=== PATIENT | male | born 1980 | race African-American/Black ===

== ENCOUNTER 2018-03-09 05:38 | Emergency (ER) | payer SELFPAY ==
[2018-03-09 06:22] VITALS: TEMP 98.9; BMI 27.1
[2018-03-09] MEDS ORDERED: AZITHROMYCIN 1 GM PACKET PO ONE (08:02)
--- NOTE | 2018-03-09 08:17 | PDOC ---
History of Present Illness - General History Source: Patient Exam Limitations: No Limitations - History of Present Illness Initial Comments: 03/09/18 08:17 The patient is a 37 year old male with no significant past medical history who presents to the ED with complaints of testicular pain for the past two days. The patient states the pain is sharp and radiates to his lower back and to his superpubic region. He reports having associated dysuria and frequency. He reports the pain is similar to when he was diagnosed with chlamydia three months ago for which he was treated with antibiotics. He reports he is sexually active with female partners and last time he engaged in sexual activity was two weeks ago with his ex, the same person he had relations with when he contracted chlamydia. He denies any trauma to the area. Denies any saddle anesthesia. Denies any associated fevers, chills, or body aches. <Doreen Ornelas - Last Filed: 03/09/18 10:27> <Torsten Conner - Last Filed: 03/09/18 11:12> - General Chief Complaint: Back Pain Stated Complaint: LOW BACK PAIN,ABD PAIN Time Seen by Provider: 03/09/18 07:22 Past History <Doreen Ornelas - Last Filed: 03/09/18 10:27> - Past Medical History COPD: No - Immunization History Immunization Up to Date: Yes - Suicide/Smoking/Psychosocial Hx Smoking History: Never smoked Have you smoked in the past 12 months: No Information on smoking cessation initiated: No Hx Alcohol Use: No Drug/Substance Use Hx: No Substance Use Type: None <Torsten Conner - Last Filed: 03/09/18 11:12> - Past Medical History Allergies/Adverse Reactions: Allergies Allergy/AdvReac Type Severity Reaction Status Date / Time No Known Allergies Allergy Verified 03/09/18 06:10 Home Medications: Ambulatory Orders Doxycycline Monohydrate [Monodox] 100 mg PO Q12H #14 capsule 03/09/18 Review of Systems - Review of Systems Comments:: 03/09/18 08:17 <Doreen Ornelas - Last Filed: 03/09/18 10:27> - Review of Systems Constitutional: No: Chills, Fever, Night Sweats, Unexplained wgt Loss Respiratory: No: Cough, Shortness of Breath Cardiac (ROS): No: Chest Pain ABD/GI: No: Constipated, Diarrhea, Vomiting : Yes: See HPI Musculoskeletal: No: Back Pain, Muscle Pain All Other Systems: Reviewed and Negative <Torsten Conner - Last Filed: 03/09/18 11:12> *Physical Exam - Vital Signs Last Vital Signs Temp Pulse Resp BP Pulse Ox 98.9 F 82 20 148/66 99 03/09/18 05:40 03/09/18 05:40 03/09/18 05:40 03/09/18 05:40 03/09/18 05:40 - Physical Exam Comments: 03/09/18 08:28 GENERAL: The patient is awake, alert, and fully oriented, in no acute distress. HEAD: Normal with no signs of trauma. EYES: Pupils equal, round and reactive to light, extraocular movements intact, sclera anicteric, conjunctiva clear with no pallor. ENT: Ears normal, nares patent, oropharynx clear without exudates. Moist mucous membranes. NECK: Normal range of motion, supple without lymphadenopathy, JVD, or masses. LUNGS: Breath sounds equal, clear to auscultation bilaterally. No wheeze/ crackles. HEART: Regular rate and rhythm, normal S1 and S2 without murmur or rub. ABDOMEN: Soft/nontender/nondistended. BS wnl. No guarding or rebound. No palpable masses. No hepatosplenomegaly. GENITOURINARY: Normal circumcised penis without urethral discharge. No swelling or cellulitis. No tenderness to testes or epididymus bilaterally. No inguinal lymphadenopathy EXTREMITIES: Normal range of motion, no edema. No clubbing or cyanosis. No cords, erythema, or tenderness. NEUROLOGICAL: Cranial nerves II through XII grossly intact. Normal speech, normal gait. PSYCH: Normal mood, normal affect. SKIN: Warm, Dry, normal turgor, no rashes or lesions noted. <Doreen Ornelas - Last Filed: 03/09/18 10:27> - Vital Signs Last Vital Signs Temp Pulse Resp BP Pulse Ox 98.9 F 82 20 148/66 99 03/09/18 05:40 03/09/18 05:40 03/09/18 05:40 03/09/18 05:40 03/09/18 05:40 <Torsten Conner - Last Filed: 03/09/18 11:12> ED Treatment Course - RADIOLOGY Radiograph Interpretation: 03/09/18 10:27 Scrotal ultrasound as reviewed by Dr. Kirby reports small bilateral hydroceles , large right sided varicocele and small left sided varicocele. No evidence of torsion. <Doreen Ornelas - Last Filed: 03/09/18 10:27> - RADIOLOGY Radiology Studies Ordered: Category Date Time Status SCROTUM AND CONTENTS US [US] Stat Ultrasound 03/09/18 08:04 Ordered <Torsten Conner - Last Filed: 03/09/18 11:12> Medical Decision Making - Medical Decision Making 03/09/18 08:13 A portion of this note was documented by scribe services under my direction. I have reviewed the details of the note, within reason, and agree with the documentation with the following case summary and management plan written by me. Healthy 37-year-old male presents with pelvic/low back discomfort radiating to his scrotum and 2 days of urinary frequency and dysuria. Symptoms identical to prior diagnosis of chlamydia about 2 months ago, which was treated with symptom improvement. Patient had intercourse with same partner about 3 weeks ago, has developed the same symptoms over the last 2 days. Denies any fevers or chills, denies any injury. vss, afebrile abd exam benign, no guarding/rebound no cvat normal exam: circumsized, no discharge. no scrotal erythema or swelling, no testicular/epidydimal ttp or enlargement, no palpable hernia, no palpable enlarged inguinal LAD. 37-year-old male with symptoms of recurrence of STI, no focal findings on examination. We'll check urinalysis and urine culture and GC/Chlamydia cultures We'll treat empirically given recent diagnosis and reexposure with same symptoms Requests HIV testing, which was ordered We'll check scrotal ultrasound Disposition accordingly 03/09/18 10:59 urinalysis clear, ultrasound without acute pathology Rapid HIV test negative, counseling performed. GC and chlamydia cultures pending, received antibiotics, will follow-up cultures <Torsten Conner - Last Filed: 03/09/18 11:12> *DC/Admit/Observation/Transfer - Attestations Scribe Attestion: 03/09/18 08:29 Documentation prepared by Doreen Ornelas, acting as medical affairs leader for Torsten Conner MD. <Doreen Ornelas - Last Filed: 03/09/18 10:27> <Torsten Conner - Last Filed: 03/09/18 11:12> Diagnosis at time of Disposition: STI (sexually transmitted infection) - Discharge Dispostion Disposition: HOME Condition at time of disposition: Stable - Prescriptions Prescriptions: Doxycycline Monohydrate [Monodox] 100 mg PO Q12H #14 capsule - Referrals Referrals: Juan Alberto Hampton MD [Staff Physician] - - Patient Instructions Printed Discharge Instructions: DI for Chlamydia, DI for Gonorrhea Additional Instructions: Activity as tolerated. Stay hydrated. A culture was sent and the results will be available within the next 5-7 days. You were treated with antibiotics in the meantime, and should take Doxycycline as prescribed to complete treatment. You should follow up with your primary doctor as soon as possible regarding today's emergency department visit. Return to the emergency department for any new or concerning symptoms, particularly persistent pain or difficulty urinating, fever or chills, severe swelling or discoloration. As discussed, a screening test for the HIV virus was performed today. Your HIV test is Negative (normal). As discussed, if you engaged in high risk-behavior in the three (3) months prior to this test, you could still potentially be at risk and you will need to be re-tested. As discussed, avoid any high risk behavior (such as unprotected sex or needle- sharing) in the future to minimize the chances of paolo HIV. - Post Discharge Activity Forms/Work/School Notes: Back to Work
[2018-03-09 08:39] LABS: URINE APPEARANCE CLEAR; URINE BILIRUBIN NEGATIVE (<2.0 mg/dL); URINE COLOR YELLOW; URINE GLUCOSE (UA) NEGATIVE (NEGATIVE); URINE KETONE NEGATIVE (NEGATIVE); URINE LEUK ESTERASE NEGATIVE (NEGATIVE); URINE NITRITE NEGATIVE (NEGATIVE); URINE PROTEIN NEGATIVE (NEGATIVE); URINE UROBILINOGEN NEGATIVE mg/dL (0.2-1.0)
[2018-03-09] MEDS ORDERED: AZITHROMYCIN 250 MG TABLET ONE (08:51)
[2018-03-09] MEDS ORDERED: cefTRIAXone SODIUM 1 GM VIAL ONE ×2 (08:51→08:55)
[2018-03-09 12:43] VITALS: BP 112/92; PULSE 72
== END 2018-03-09 12:42 | disposition home or self-care (01) ==
LOC: JER 05:38
DX: A63.8 Other specified predominantly sexually transmitted diseases (principal); N43.2 Other hydrocele
CPT/HCPCS: 36415; 76870-TC; 81003; 87086; 87389; 87491; 87591; 99284-25

== ENCOUNTER 2018-07-30 21:33 | Emergency (ER) | payer OTHER ==
[2018-07-30 21:39] VITALS: BP 143/79; PULSE 83; TEMP 98.4; BMI 31.1
[2018-07-30] MEDS ORDERED: AZITHROMYCIN 250 MG TABLET PO ONE (22:32)
[2018-07-30] MEDS ORDERED: AZITHROMYCIN 250 MG TABLET ONE (22:34)
[2018-07-30 22:35] LABS: URINE APPEARANCE CLEAR; URINE BILIRUBIN NEGATIVE (<2.0 mg/dL); URINE COLOR LTYELLOW; URINE GLUCOSE (UA) NEGATIVE (NEGATIVE); URINE KETONE NEGATIVE (NEGATIVE); URINE LEUK ESTERASE NEGATIVE (NEGATIVE); URINE NITRITE NEGATIVE (NEGATIVE); URINE PROTEIN NEGATIVE (NEGATIVE); URINE UROBILINOGEN NEGATIVE mg/dL (0.2-1.0)
--- NOTE | 2018-07-30 22:35 | PDOC ---
History of Present Illness - General Chief Complaint: Penile Drainage Stated Complaint: LOWER BACK PAIN Time Seen by Provider: 07/30/18 22:31 - History of Present Illness Initial Comments: 07/30/18 22:32 37-year-old male presents for evaluation of penile tingling and burning after unprotected sex 2 weeks ago. Past History - Past Medical History Allergies/Adverse Reactions: Allergies Allergy/AdvReac Type Severity Reaction Status Date / Time No Known Allergies Allergy Verified 03/09/18 06:10 Home Medications: Ambulatory Orders NK [No Known Home Medication] 07/30/18 COPD: No - Immunization History Immunization Up to Date: Yes - Suicide/Smoking/Psychosocial Hx Smoking History: Never smoked Have you smoked in the past 12 months: No Hx Alcohol Use: No Drug/Substance Use Hx: No Substance Use Type: None Review of Systems - Review of Systems Constitutional: No: Fever : Yes: See HPI *Physical Exam - Vital Signs Last Vital Signs Temp Pulse Resp BP Pulse Ox 98.4 F 83 18 143/79 100 07/30/18 21:37 07/30/18 21:37 07/30/18 21:37 07/30/18 21:37 07/30/18 21:37 - Physical Exam Comments: 07/30/18 22:33 HEAD: NC/AT EYES: Conjuntiva clear MS: Full ROM in all joints without edema NEUROLOGIC: No gross sensory or motor deficits, NVID SKIN: Normal color and temperature no lesions or rashes Moderate Sedation - Procedure Monitoring Vital Signs: Procedure Monitoring Vital Signs Temperature 98.4 F 07/30/18 21:37 Pulse Rate 83 07/30/18 21:37 Respiratory Rate 18 07/30/18 21:37 Blood Pressure 143/79 07/30/18 21:37 O2 Sat by Pulse Oximetry (%) 100 07/30/18 21:37 Medical Decision Making - Medical Decision Making 07/30/18 22:35 Patient states she had a recent HIV negative test. He is out of the window for any post exposure prophylaxis therapy he will follow-up with his primary care for RPR as well as HIV testing *DC/Admit/Observation/Transfer Diagnosis at time of Disposition: STI (sexually transmitted infection) - Discharge Dispostion Disposition: HOME Condition at time of disposition: Stable Decision to Admit order: No - Referrals Referrals: Andrzej Montero [Non Staff, Medical] - - Patient Instructions Additional Instructions: Tonight you were treated for gonorrhea and chlamydia. Please abstain from sex or if you do have sex use protected sex with condoms and follow-up with internal medicine for HIV testing as well as syphilis testing. - Post Discharge Activity
== END 2018-07-30 22:43 | disposition home or self-care (01) ==
LOC: JERFT 21:33
DX: A64 Unspecified sexually transmitted disease (principal)
CPT/HCPCS: 36415; 81003; 87086; 87491; 87591; 96372; 99281-25

== ENCOUNTER 2018-11-08 09:54 | Emergency (ER) | payer OTHER ==
[2018-11-08 10:00] VITALS: BP 145/80; PULSE 87; TEMP 98.1; BMI 29.4
[2018-11-08 11:33] LABS: PH,URINE 5.5 (5.0-8.0); URINE APPEARANCE CLEAR; URINE BILIRUBIN NEGATIVE (NEGATIVE); URINE COLOR YELLOW; URINE GLUCOSE (UA) NEGATIVE (NEGATIVE); URINE KETONE TRACE (NEGATIVE); URINE LEUK ESTERASE NEGATIVE (NEGATIVE); URINE NITRITE NEGATIVE (NEGATIVE); URINE PROTEIN NEGATIVE (NEGATIVE)
[2018-11-08] MEDS ORDERED: AZITHROMYCIN 500 MG TABLET PO ONE (11:34)
--- NOTE | 2018-11-08 11:34 | PDOC ---
History of Present Illness - General Chief Complaint: Back Pain Stated Complaint: BACK PAIN Time Seen by Provider: 11/08/18 11:29 History Source: Patient Exam Limitations: No Limitations Past History - Travel Traveled outside of the country in the last 30 days: No Close contact w/someone who was outside of country & ill: No - Past Medical History Allergies/Adverse Reactions: Allergies Allergy/AdvReac Type Severity Reaction Status Date / Time No Known Allergies Allergy Verified 11/08/18 09:57 Home Medications: Ambulatory Orders NK [No Known Home Medication] 07/30/18 COPD: No - Immunization History Immunization Up to Date: Yes - Suicide/Smoking/Psychosocial Hx Smoking History: Never smoked Have you smoked in the past 12 months: No Hx Alcohol Use: No Drug/Substance Use Hx: No Substance Use Type: None Review of Systems - Review of Systems Able to Perform ROS?: Yes Comments:: 11/08/18 13:21 CONSTITUTIONAL: Absent: fever, chills, diaphoresis, generalized weakness, malaise, loss of appetite HEENT: Absent: rhinorrhea, nasal congestion, throat pain, throat swelling, difficulty swallowing, mouth swelling, ear pain, eye pain, visual Changes CARDIOVASCULAR: Absent: chest pain, loss of consciousness, palpitations, irregular heart rate, peripheral edema RESPIRATORY: Absent: cough, shortness of breath, dyspnea with exertion, orthopnea, wheezing, stridor, hemoptysis GASTROINTESTINAL: Absent: abdominal pain, abdominal distension, nausea, vomiting, diarrhea, constipation, melena, hematochezia GENITOURINARY: Present: dysuria, tingling with urination Absent: dysuria, frequency, urgency, hesitancy, hematuria, flank pain, genital pain MUSCULOSKELETAL: Absent: myalgia, arthralgia, joint swelling SKIN: Absent: rash, itching, pallor HEMATOLOGIC/IMMUNOLOGIC: Absent: easy bleeding, easy bruising, lymphadenopathy, frequent infections ENDOCRINE: Absent: unexplained weight gain, unexplained weight loss, heat intolerance, cold intolerance NEUROLOGIC: Absent: headache, focal weakness or paresthesias, dizziness, unsteady gait, seizure, mental status changes, bladder or bowel incontinence PSYCHIATRIC: Absent: anxiety, depression, suicidal or homicidal ideation, hallucinations. Is the patient limited Yemeni proficient: No *Physical Exam - Vital Signs Last Vital Signs Temp Pulse Resp BP Pulse Ox 98.1 F 87 18 145/80 99 11/08/18 09:57 11/08/18 09:57 11/08/18 09:57 11/08/18 09:57 11/08/18 09:57 - Physical Exam Comments: 11/08/18 13:23 GENERAL: Well developed, well nourished. Awake and alert. No acute distress. ABDOMINAL: Soft. Non-tender. Non-distended. No rebound or guarding. No organomegaly. Normoactive bowel sounds. : No rashes or discharge noted MUSCULOSKELETAL Normal range of motion at all joints. No bony deformities or tenderness. No CVA tenderness. EXTREMITIES: No cyanosis. No clubbing. No edema. No calf tenderness. SKIN: Warm and dry. Normal capillary refill. No rashes. No jaundice. NEUROLOGICAL: Alert, awake, appropriate. Cranial nerves 2-12 intact. No deficits to light touch and temperature in face, upper extremities and lower extremities. No motor deficits in the in face, upper extremities and lower extremities. Normoreflexic in the upper and lower extremities. Normal speech. Toes are down- going bilaterally. Gait is normal without ataxia. PSYCHIATRIC: Cooperative. Good eye contact. Appropriate mood and affect. Medical Decision Making - Medical Decision Making 11/08/18 14:26 The patient is a 37-year-old male with no past medical history, who presents to the emergency department today for evaluation for STI's after having unprotected sex last week. Patient states he had sex with 3 new partners and does not know their medical history. He states that since the encounter he has had tingling to his urethra when he pees. he also states that he has a tingling feeling in his groin as if he is about to get a rash. He states that he also has some pain that radiates to the back. Denies fevers, chills, nausea , vomiting, diarrhea, frequency, dysuria, hematuria and rashes. A/P: Possible STI On exam no rash appreciated in the groin, no discharge from the urethra Given patient's encounter with multiple new women will prophylactically treat for gonorrhea and chlamydia. Cultures were sent. Urine is negative for infection at this time Patient HIV test is negative Pending RPR Unlikely herpes as patient already had a rash given the length of tingling feeling Referral to primary care given Discharge home I discussed the physical exam findings, ancillary test results and final diagnoses with the patient. I answered all of the patient's questions. The patient was satisfied with the care received and felt comfortable with the discharge plan and treatment plan. The Patient agrees to follow up with the primary care physician/specialist within 24-72 hours. Return precautions were given. *DC/Admit/Observation/Transfer Diagnosis at time of Disposition: STI (sexually transmitted infection) - Discharge Dispostion Disposition: HOME Condition at time of disposition: Stable Decision to Admit order: No - Referrals Referrals: Judy Flores [Primary Care Provider] - - Patient Instructions Printed Discharge Instructions: Facts About Sexually Transmitted Infections Additional Instructions: 11/08/18 1. As discussed, a screening test for the HIV virus was performed today. Your HIV test is Negative (normal). 2. As discussed, if you engaged in high risk-behavior in the three (3) months prior to this test, you could still potentially be at risk and you will need to be re-tested. 3. As discussed, avoid any high risk behavior (such as unprotected sex or needle-sharing) in the future to minimize the chances of paolo HIV. Use protection when having sex You were treated prophylactically for gonorrhea and chlamida Your urine as negative for infection Return to the ED for new or worsening symptoms - Post Discharge Activity Forms/Work/School Notes: Back to Work
[2018-11-08] MEDS ORDERED: AZITHROMYCIN 250 MG TABLET ONE ×2 (11:47→11:49)
== END 2018-11-08 13:47 | disposition home or self-care (01) ==
LOC: JERFT 09:54
DX: A64 Unspecified sexually transmitted disease (principal)
CPT/HCPCS: 36415; 81003; 86593; 87086; 87389; 87491; 87591; 96372; 99281-25

== ENCOUNTER 2019-01-27 21:10 | Emergency (ER) | payer OTHER ==
[2019-01-27 21:45] VITALS: BMI 30.6
--- NOTE | 2019-01-27 22:46 | PDOC ---
History of Present Illness - General Chief Complaint: Back Pain Stated Complaint: LOWER BACK PAIN Time Seen by Provider: 01/27/19 21:44 History Source: Patient Exam Limitations: No Limitations - History of Present Illness Initial Comments: Isma Benites is a 38 yo M w no sig pmh who presents to the ER stating his girlfriend was recently diagnosed with trichomonas and he came to the ER because he was told he needs to be treated. Patient states he also has some occasional lower back pain and testicular discomfort. Denies burning on urination, frequency, urgency, fevers, chills, or rashes. PCP: Judy Flores PSH: None reported Social Hx: Occasional marijuana usage. Denies illicit drugs, alcohol or cigarettes. Allergies: NKA, NKDA Past History - Past Medical History Allergies/Adverse Reactions: Allergies Allergy/AdvReac Type Severity Reaction Status Date / Time No Known Allergies Allergy Verified 01/27/19 21:26 Home Medications: Ambulatory Orders metroNIDAZOLE [Metronidazole] 500 mg PO BID 7 Days #14 tablet 01/27/19 COPD: No - Immunization History Td Vaccination: Yes TDAP Vaccination: Yes Immunization Up to Date: Yes - Suicide/Smoking/Psychosocial Hx Smoking History: Never smoked Have you smoked in the past 12 months: No Information on smoking cessation initiated: No Hx Alcohol Use: No Drug/Substance Use Hx: No Substance Use Type: None Review of Systems - Review of Systems Able to Perform ROS?: Yes Comments:: CONSTITUTIONAL: Absent: fever, chills, diaphoresis, generalized weakness, malaise, loss of appetite HEENT: Absent: rhinorrhea, nasal congestion, throat pain, throat swelling, difficulty swallowing, mouth swelling, ear pain, eye pain, visual Changes CARDIOVASCULAR: Absent: chest pain, syncope, palpitations, irregular heart rate, lightheadedness , peripheral edema RESPIRATORY: Absent: cough, shortness of breath, dyspnea with exertion, orthopnea, wheezing, stridor, hemoptysis GASTROINTESTINAL: Absent: abdominal pain, abdominal distension, nausea, vomiting, diarrhea, constipation, melena, hematochezia GENITOURINARY: Present: Genital pain Absent: dysuria, frequency, urgency, hesitancy, hematuria, flank pain MUSCULOSKELETAL: Absent: myalgia, arthralgia, joint swelling SKIN: Absent: rash, itching, pallor HEMATOLOGIC/IMMUNOLOGIC: Absent: easy bleeding, easy bruising, lymphadenopathy, frequent infections ENDOCRINE: Absent: unexplained weight gain, unexplained weight loss, heat intolerance, cold intolerance NEUROLOGIC: Absent: headache, focal weakness or paresthesias, dizziness, unsteady gait, seizure, mental status changes, bladder or bowel incontinence PSYCHIATRIC: Absent: anxiety, depression, suicidal or homicidal ideation, hallucinations. *Physical Exam - Vital Signs Last Vital Signs Temp Pulse Resp BP Pulse Ox 98.3 F 82 20 118/77 99 01/27/19 21:26 01/27/19 21:26 01/27/19 21:26 01/27/19 21:26 01/27/19 21:26 - Physical Exam Comments: GENERAL: Well developed, well nourished. Awake and alert. No acute distress. HEENT: Normocephalic, atraumatic. PERRLA, EOMI. No conjunctival pallor. Sclera are non- icteric. Moist mucous membranes. Oropharynx is clear. NECK: Supple. Full ROM. No JVD. CARDIOVASCULAR: Regular rate and rhythm. No murmurs, rubs, or gallops. Distal pulses are 2+ and symmetric. PULMONARY: No evidence of respiratory distress. Lungs clear to auscultation bilaterally. No wheezing, rales or rhonchi. ABDOMINAL: Soft. Non-tender. Non-distended. No rebound or guarding. No organomegaly. Normoactive bowel sounds. MUSCULOSKELETAL Normal range of motion at all joints. No bony deformities or tenderness. No CVA tenderness. EXTREMITIES: No cyanosis. No clubbing. No edema. No calf tenderness. SKIN: Warm and dry. Normal capillary refill. No rashes. No jaundice. NEUROLOGICAL: Alert, awake, appropriate. Cranial nerves 2-12 intact. No deficits to light touch in face, upper extremities and lower extremities. No motor deficits in the in face, upper extremities and lower extremities. Normal speech. Gait is normal without ataxia. PSYCHIATRIC: Cooperative. Good eye contact. Appropriate mood and affect. Male Genitalia: positive: normal genitalia. negative: discharge, testicular tenderness, testicular mass, epididymus tender, inguinal hernia, hernia, CVAT, hematuria Rectal Exam: positive: deferred ED Treatment Course - RADIOLOGY Radiology Studies Ordered: Category Date Time Status SCROTUM AND CONTENTS US [US] Stat Ultrasound 01/27/19 22:41 Ordered Radiograph Interpretation: Testicular US: FINDINGS: Right testis measures 4.9 x 2.1 x 3.0 cm. There is no testicular mass. Doppler imaging demonstrates positive vascular flow with arterial and venous waveforms. Right epididymis measures 1 cm x 0.3 cm x 0.2 cm. Left testis measures 4.5 x 2.2 x 3.1 cm. There is no testicular mass. Doppler imaging demonstrates positive vascular flow with arterial and venous waveforms. Left epididymis measures 9 x 3 x 2 mm IMPRESSION: No torsion Medical Decision Making - Medical Decision Making Isma Benites is a 38 yo M w no sig pmh who presents to the ER stating his girlfriend was recently diagnosed with trichomonas and he came to the ER because he was told he needs to be treated. Patient states he also has some occasional lower back pain and testicular discomfort. Denies burning on urination, frequency, urgency, fevers, chills, or rashes. Vital Signs Temp Pulse Resp BP Pulse Ox 98.3 F 82 20 118/77 99 01/27/19 21:26 01/27/19 21:26 01/27/19 21:26 01/27/19 21:26 01/27/19 21:26 DDx IBNLT: trichomonas, GC, CT, UTI, pylo, testicular torsion, epidydymitis, orchitis Plan: ua, uc, STD panel, testicular US, Abx, DC UA: Clean, no signs of infection Testicular US: No torsion or signs of epidydymitis. Disposition: Home with script for Metro. Patient notified he will receive a call regarding his STD tests in the ER. *DC/Admit/Observation/Transfer Diagnosis at time of Disposition: Trichomonas contact - Discharge Dispostion Disposition: HOME Condition at time of disposition: Improved Decision to Admit order: No - Prescriptions Prescriptions: metroNIDAZOLE [Metronidazole] 500 mg PO BID 7 Days #14 tablet - Referrals Referrals: Judy Flores [Non Staff, Medical] - - Patient Instructions Printed Discharge Instructions: Facts About Sexually Transmitted Infections, How to Detect and Treat STDs Additional Instructions: You came into the ER concerned that you were exposed to trichomonas. We have sent a medication over to your pharmacy for you to go and pick and take 500 mg twice daily for 7 days. Please make sure to go and pick it up. Please make sure to schedule a follow up with your primary care doctor in the next 3 to 5 days. We looked at your urine and found no signs of infection. We sent an STD test for gonorrhea, chlamydia and trichomonas for which you will receive a call in 5 days with the results. Please use safe sex techniques and barrier protection as needed. Come back to the ER if your symptoms worsen, you get a fever, have testicular pain, or any other new or worsening concerns. Thank you for coming to the [facility] ER. We hope you feel better soon! Print Language: ARGENTINE - Post Discharge Activity
--- NOTE | 2019-01-27 23:22 | PDOC ---
Attending Attestation - Resident Resident Name: Deonte Schroeder - ED Attending Attestation I have performed the following: I have examined & evaluated the patient, The case was reviewed & discussed with the resident, I agree w/resident's findings & plan, Exceptions are as noted - HPI HPI: 01/28/19 00:39 Reviewed Residents HPI - Physicial Exam PE: 01/28/19 00:39 Reviewed Residents PE - Medical Decision Making 01/29/19 00:30 38 years old with no significant past medical history presents ED because his girlfriend was recently diagnosed with Trichomonas came to the ED because he was told he needed to be treated. Has some very mild testicular discomfort with no pain on examination Urinalysis was unremarkable testicular ultrasound shows no detergent. Patient examined for GC chlamydia culture sent results pending treated empirically for Trichomonas Findings, need for follow-up and strict return instructions discussed with patient.
[2019-01-27 23:27] LABS: URINE APPEARANCE CLOUDY; URINE BILIRUBIN NEGATIVE (NEGATIVE); URINE COLOR YELLOW; URINE GLUCOSE (UA) NEGATIVE (NEGATIVE); URINE KETONE NEGATIVE (NEGATIVE); URINE LEUK ESTERASE NEGATIVE (NEGATIVE); URINE NITRITE NEGATIVE (NEGATIVE); URINE PROTEIN NEGATIVE (NEGATIVE)
[2019-01-28 00:57] VITALS: BP 120/78; PULSE 78; TEMP 98.2
== END 2019-01-28 00:57 | disposition home or self-care (01) ==
LOC: JER 21:10
DX: Z13.89 Encounter for screening for other disorder (principal)
CPT/HCPCS: 36415; 76870-TC; 81003; 87086; 87491; 87591; 87661; 99283-25

== ENCOUNTER 2019-02-06 00:40 | Emergency (ER) | payer OTHER ==
[2019-02-06 02:05] VITALS: BP 124/82; PULSE 77; TEMP 98.8; BMI 29.6
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
[2019-02-06] MEDS ORDERED: AZITHROMYCIN 500 MG TABLET PO ONE (02:35)
[2019-02-06] MEDS ORDERED: KETOROLAC TROMETHAMINE 30 MG/1 ML VIAL IM ONE (02:36)
[2019-02-06] MEDS ORDERED: LIDOCAINE HCL 1%, 10 MG/ML (20ML VIAL) ONE (02:41)
[2019-02-06] MEDS ORDERED: AZITHROMYCIN 250 MG TABLET ONE (02:41)
[2019-02-06] MEDS ORDERED: KETOROLAC TROMETHAMINE 30 MG/1 ML VIAL ONE (02:41)
[2019-02-06] MEDS ORDERED: cefTRIAXone SODIUM 1 GM VIAL ONE (02:42)
[2019-02-06 03:04] LABS: PH,URINE 5.5 (5.0-8.0); URINE APPEARANCE CLEAR; URINE BILIRUBIN NEGATIVE (NEGATIVE); URINE COLOR YELLOW; URINE GLUCOSE (UA) NEGATIVE (NEGATIVE); URINE KETONE TRACE (NEGATIVE); URINE LEUK ESTERASE NEGATIVE (NEGATIVE); URINE NITRITE NEGATIVE (NEGATIVE); URINE PROTEIN NEGATIVE (NEGATIVE)
== END 2019-02-06 03:29 | disposition home or self-care (01) ==
LOC: JER 00:40
PROC: 3E02329 Introduction of Other Anti-infective into Muscle, Percutaneous Approach (ICD-10-PCS; principal; 2019-02-06)
PROC: 3E0233Z Introduction of Anti-inflammatory into Muscle, Percutaneous Approach (ICD-10-PCS; 2019-02-06)
PROC: BV44ZZZ Ultrasonography of Scrotum (ICD-10-PCS; 2019-02-06)
DX: M54.5 Low back pain (principal); V43.62XA Car passenger injured in collision with other type car in traffic accident, initial encounter; Y92.414 Local residential or business street as the place of occurrence of the external cause; Y99.0 Civilian activity done for income or pay; Y93.89 Activity, other specified; Z20.2 Contact with and (suspected) exposure to infections with a predominantly sexual mode of transmission; N48.89 Other specified disorders of penis
CPT/HCPCS: 36415; 76870-TC; 81003; 87491; 87591; 99281-25

== ENCOUNTER 2020-11-01 17:37 | Emergency (ER) | payer OTHER ==
[2020-11-01 18:12] VITALS: BP 118/74; PULSE 85; TEMP 98.1; BMI 27.8
[2020-11-01] MEDS ORDERED: AZITHROMYCIN 500 MG TABLET PO ONE (18:34)
[2020-11-01] MEDS ORDERED: AZITHROMYCIN 250 MG TABLET ONE (18:49)
[2020-11-01] MEDS ORDERED: LIDOCAINE HCL/PF 1% SDV 5ML VIAL ONE (18:49)
[2020-11-01 20:07] LABS: URINE APPEARANCE CLEAR; URINE BILIRUBIN NEGATIVE (NEGATIVE); URINE COLOR YELLOW; URINE GLUCOSE (UA) NEGATIVE (NEGATIVE); URINE KETONE NEGATIVE (NEGATIVE); URINE LEUK ESTERASE NEGATIVE (NEGATIVE); URINE NITRITE NEGATIVE (NEGATIVE); URINE PROTEIN NEGATIVE (NEGATIVE)
== END 2020-11-01 19:57 | disposition home or self-care (01) ==
LOC: JERFT 17:37
DX: Z20.2 Contact with and (suspected) exposure to infections with a predominantly sexual mode of transmission (principal)
CPT/HCPCS: 36415; 81003; 87086; 87491; 87591; 99284-25